=== PATIENT | female | born 1940 | race Caucasian/White ===

== ENCOUNTER 2016-10-30 11:49 | Emergency (ER) | payer OTHER ==
[2016-10-30 12:13] VITALS: RESP 16; TEMP 98.1
--- NOTE | 2016-10-30 12:33 | ED PDOC ---
Arrival/HPI - General Chief Complaint: Abdominal Pain Time Seen by Provider: 10/30/16 12:08 Historian: Patient, Family, Wireless Internet Installer (CLAUDETTE Reddy) - History of Present Illness Narrative History of Present Illness (Text): 10/30/16 12:10 Benjy Galaviz is a 76 year old female accompanied by family, whose past medical history includes hypertension, who presents to the emergency department complaining of a burning sensation to the left side of her face, neck, chest, and left arm for about 1 week. Patient cannot speak [place], [facility]. Patient's family states that has had these symptoms intermittently since she was in [place] years ago and was told it was a nerve issue but patient was not overly concerned. Patient states that the same symptoms have worsened significantly over the past week causing her to come to emergency department. Patient denies any pain, nausea, back pain, or any other complaint at this time. No weakness. PMD: None Time/Duration: 1 week Symptom Onset: Gradual Symptom Course: Worsening Severity Level: Mild Activities at Onset: Rest Past Medical History - Provider Review Nursing Documentation Reviewed: Yes - Past History Past History: Non-Contributing - Cardiac Hx Cardiac Disorders: Yes Hx Hypertension: Yes - Pulmonary Hx Respiratory Disorders: No - Neurological Hx Neurological Disorder: No - HEENT Hx HEENT Disorder: No - Renal Hx Renal Disorder: No - Endocrine/Metabolic Hx Endocrine Disorders: No - Hematological/Oncological Hx Blood Disorders: Yes - Integumentary Hx Dermatological Disorder: No - Musculoskeletal/Rheumatological Hx Musculoskeletal Disorders: No - Gastrointestinal Hx Gastrointestinal Disorders: No - Genitourinary/Gynecological Hx Genitourinary Disorders: No - Psychiatric Hx Psychophysiologic Disorder: No Hx Substance Use: No Family/Social History - Physician Review Nursing Documentation Reviewed: Yes Family/Social History: No Known Family HX Smoking Status: Never Smoked Hx Alcohol Use: No Hx Substance Use: No Allergies/Home Meds Allergies/Adverse Reactions: Allergies No Known Allergies Allergy (Verified 04/09/16 09:19) Review of Systems - Physician Review All systems were reviewed & negative as marked: Yes - Review of Systems Constitutional: Other (burning sensation to left-sided face, neck, chest, and arm). absent: Fevers, Night Sweats Eyes: absent: Vision Changes ENT: absent: Hearing Changes Respiratory: absent: SOB, Cough Cardiovascular: absent: Chest Pain Gastrointestinal: absent: Abdominal Pain Genitourinary Female: absent: Dysuria, Urine Output Changes Musculoskeletal: absent: Arthralgias, Back Pain, Neck Pain Skin: absent: Rash Neurological: absent: Headache Endocrine: absent: Diaphoresis Hemo/Lymphatic: absent: Adenopathy Psychiatric: absent: Depression Physical Exam Vital Signs Reviewed: Yes Vital Signs Temp Pulse Resp BP Pulse Ox 10/30/16 14:34 80 16 137/63 96 10/30/16 12:09 98.1 F 83 16 162/82 H 98 Temperature: Afebrile Blood Pressure: Hypertensive Pulse: Regular Respiratory Rate: Normal Appearance: Positive for: Well-Appearing, Non-Toxic, Comfortable Pain Distress: None Mental Status: Positive for: Alert and Oriented X 3 - Systems Exam Head: Present: Atraumatic, Normocephalic Pupils: Present: PERRL Extroacular Muscles: Present: EOMI Conjunctiva: Present: Normal Mouth: Present: Moist Mucous Membranes, Other (normal gums; no abscess ) Pharnyx: Present: Normal. No: ERYTHEMA, EXUDATE Neck: Present: Normal Range of Motion, Other (tender left paraspinal; No carotid bruit). No: MIDLINE TENDERNESS, JVD, Bruit Respiratory/Chest: Present: Clear to Auscultation, Good Air Exchange. No: Respiratory Distress, Accessory Muscle Use Cardiovascular: Present: Regular Rate and Rhythm, Normal S1, S2. No: Murmurs Abdomen: Present: Normal Bowel Sounds. No: Tenderness, Distention, Peritoneal Signs Back: Present: Normal Inspection Upper Extremity: Present: Normal Inspection, Normal ROM, NORMAL PULSES, Neurovascularly Intact. No: Cyanosis, Edema, Tenderness, Swelling, Erythema Lower Extremity: Present: Normal Inspection, Neurovascularly Intact. No: Edema Neurological: Present: GCS=15, CN II-XII Intact, Speech Normal, Motor Func Grossly Intact, Normal Sensory Function, Normal Cerebellar Funct Skin: Present: Warm, Dry, Normal Color. No: Rashes Psychiatric: Present: Alert, Oriented x 3, Normal Insight, Normal Concentration Medical Decision Making ED Course and Treatment: 10/30/16 12:10 Impression: 76 year old female complaining of a burning sensation to the left side of her face, neck, chest, and left arm for about 1 week. Differential Diagnosis include but are not limited to: Neuropathy vs. Muscle Strain vs. Atypical Chest pain Plan: -- EKG -- Chest X-ray -- Urinalysis -- Labs -- Reassess and disposition Prior Visits: Notes and results from previous visits were reviewed. Patient last seen in ED on 04/09/16 for sharp epigastric pain for 3 days. Patient was discharged home. Progress Notes: EKG: Ordered, reviewed, and independently interpreted the EKG. Rate : 84 BPM Rhythm : NSR Interpretation : No ST-segment elevations or depressions, no T-wave inversions, normal intervals. Comparison : No previous EKG for comparison. 10/30/16 12:50 Reviewed radiology, Chest x-ray results are normal. Patient's labs were normal. EKG normal. CXR normal. She has a very low ISAAC score and symptoms have been constant for a week. There is a low likely for ACS but have advised that she needs to follow up with the clinic and Cardiology. Family at bedside and translation provided by CLAUDETTE Reddy. They were advised to return to the ED if symptoms worsen or any other concern. - Lab Interpretations Lab Results: 10/30/16 12:43 10/30/16 12:43 Lab Results 10/30/16 13:02: Urine Color Yellow, Urine Appearance Clear, Urine pH 6.0, Ur Specific [place] 1.010, Urine Protein Negative, Urine Glucose (UA) Negative, Urine Ketones Negative, Urine Blood Trace-lysed H, Urine Nitrate Negative, Urine Bilirubin Negative, Urine Urobilinogen 0.2, Ur Leukocyte Esterase Negative , Urine RBC 0 - 2, Urine WBC Negative, Ur Epithelial Cells 1 - 3 10/30/16 12:43: Sodium 141, Potassium 4.0, Chloride 104, Carbon Dioxide 26, Anion Gap 15, BUN 18, Creatinine 0.8, Est GFR ( Amer) > 60, Est GFR (Non- Af Amer) > 60, Random Glucose 131 H, Calcium 9.8, Magnesium 2.1, Total Bilirubin 0.8, AST 32, ALT 35, Alkaline Phosphatase 99, Lactate Dehydrogenase 358, Total Creatine Kinase 42, Troponin I < 0.01, Total Protein 9.7 H, Albumin 4.6, Globulin 5.1, Albumin/Globulin Ratio 0.9 L 10/30/16 12:43: WBC 5.1 D, RBC 4.59, Hgb 13.8, Hct 41.0, MCV 89.3, MCH 30.1, MCHC 33.7, RDW 13.0, Plt Count 349, MPV 9.7, Gran % 43.0 L, Lymph % (Auto) 45.2 H, [place] % (Auto) 9.8 H, Eos % (Auto) 1.4 L, Baso % (Auto) 0.6, Gran # 2.20, Lymph # 2.3, [place] # 0.5, Eos # 0.1, Baso # 0.03 I have reviewed the lab results: Yes Interpretation: Abnormal lab values - RAD Interpretation Radiology Orders: 10/30/16 12:27 CHEST PORTABLE [RAD] Stat - Medication Orders Current Medication Orders: Discontinued Medications Ketorolac Tromethamine (Toradol) 30 mg IVP STAT STA Stop: 10/30/16 12:31 Last Admin: 10/30/16 12:42 Dose: 30 mg ISAAC Risk Score for UA/NSTEMI - ISAAC Risk Score Age > 64: YES 3 or more CAD Risk Factors: NO Known CAD (Stenosis greater than 50%): NO Aspirin use in past 7 days: NO Severe Angina: NO EKG ST changes greater than 0.5mm: NO Positive Cardiac Marker: NO ISAAC Score: 1 % risk at 14 days of: all cause mortality, new or recurrent SD, or severe recurrent ischemia requiring urgen revascularization: 5% - Scribe Statement The provider has reviewed the documentation as recorded by the Cortez Corona Provider Scribe Attestation: All medical record entries made by the Farrahibtyra were at my direction and personally dictated by me. I have reviewed the chart and agree that the record accurately reflects my personal performance of the history, physical exam, medical decision making, and the department course for this patient. I have also personally directed, reviewed, and agree with the discharge instructions and disposition. Disposition/Present on Arrival - Present on Arrival Any Indicators Present on Arrival: No History of DVT/PE: No History of Uncontrolled Diabetes: No Urinary Catheter: No History of Decub. Ulcer: No History Surgical Site Infection Following: None - Disposition Have Diagnosis and Disposition been Completed?: Yes Diagnosis: Burning chest pain, Neck strain Disposition: HOME/ ROUTINE Disposition Time: 14:44 Patient Plan: Discharge Condition: IMPROVED Discharge Instructions (ExitCare): Chest Pain (ED) Additional Instructions: Ms Galaviz thank you for letting us take care of you today. Your provider was Dr. Sosa. You were treated for Face and Chest Burning, Neck Strain The emergency medical care you received today was directed at your acute symptoms. If you were prescribed any medication, please fill it and take as directed. It may take several days for your symptoms to resolve. Return to the Emergency Department if your symptoms worsen, do not improve, or if you have any other problems. Please contact your doctor or call one of the physicians/clinics you have been referred to that are listed on the Patient Visit Information form that is included in your discharge packet. Bring any paperwork you were given at discharge with you along with any medications you are taking to your follow up visit. Our treatment cannot replace ongoing medical care by a primary care provider (PCP) outside of the emergency department. Thank you for allowing the [facility] team to be part of your care today. If you had an X-Ray or CT scan: A Radiologist will review the ED reading if any change in treatment is needed we will contact you. If you had a blood, urine, or wound culture: It will take several days for the results, if any change in treatment is needed we will contact you. If you had an STI test: It will take 48 hours for the results. Please call after 1 week if you have not heard back. Prescriptions: Ibuprofen [Motrin] 600 mg PO Q6 PRN #30 tab PRN Reason: Pain, Moderate (4-7) Referrals: [facility] [place] [Outside] - Follow up with primary Forms: [employer] ([place]ican)
[2016-10-30 12:44] LABS: ADD MANUAL DIFF? NO
[2016-10-30 12:47] LABS: BASO # 0.03 K/mm3 (0.0-2.0); BASO % 0.6 % (0.0-3.0); EOS # 0.1 (0.0-0.7); EOS % 1.4 % (1.5-5.0); LYMPH # 2.3 (1.2-3.4); LYMPH % 45.2 % (22.0-35.0); MEAN CELL VOLUME 89.3 fL (80.0-105.0); MEAN CORPUSCULAR HEMOGLOBIN 30.1 pg (25.0-35.0); MEAN CORPUSCULAR HGB CONC 33.7 g/dl (31.0-37.0); MEAN PLATELET VOLUME 9.7 fl (7.0-11.0); MONO # 0.5 (0.1-0.6); MONO % 9.8 % (1.0-6.0); PLATELET COUNT 349 10^3/uL (120.0-450.0); WHITE BLOOD COUNT 5.1 10^3/ul (4.5-11.0)
[2016-10-30 12:58] LABS: ALB/GLOB RATIO 0.9 (1.1-1.8); BLOOD UREA NITROGEN 18 mg/dL (7-21); CALCIUM 9.8 mg/dL (8.4-10.5); CARBON DIOXIDE 26 mmol/L (21-33); CHLORIDE 104 mmol/L (98-107); GFR AFRICAN-AMERICAN > 60; GLUCOSE,RANDOM 131 mg/dL (70-110); SODIUM 141 mmol/L (132-148); TOTAL PROTEIN 9.7 g/dL (5.8-8.3)
[2016-10-30 12:59] LABS: ALKALINE PHOSPHATASE 99 U/L (38-133); ALT/SGPT 35 U/L (7-56); AST/SGOT 32 U/L (15-39); BILIRUBIN,TOTAL 0.8 mg/dL (0.2-1.3); MAGNESIUM 2.1 mg/dL (1.7-2.2)
[2016-10-30 13:09] LABS: URINE BILIRUBIN NEGATIVE (NEGATIVE); URINE BLOOD TRACE-LYSED (NEGATIVE); URINE GLUCOSE (UA) NEGATIVE (NEGATIVE); URINE KETONE NEGATIVE (NEGATIVE); URINE LEUKOCYTE ESTERASE NEGATIVE Leu/uL (NEGATIVE); URINE PROTEIN NEGATIVE mg/dL (<30 mg/dL); URINE UROBILINOGEN 0.2 E.U./dL (<1 E.U./dL)
[2016-10-30 13:11] LABS: TROPONIN I < 0.01 ng/mL
[2016-10-30 13:12] LABS: URINE APPEARANCE CLEAR (CLEAR); URINE COLOR YELLOW (YELLOW)
[2016-10-30 13:13] LABS: URINE RBC 0 - 2 /hpf (0-2); URINE WBC NEGATIVE /hpf (0-6)
[2016-10-30 14:34] VITALS: BP 137/63; PULSE 80; O2SAT 96
--- NOTE | 2016-10-30 15:43 | CARD ---
APPROVED REPORT EKG Measurement Heart [id number] <Conclusion> Normal sinus rhythm Normal ECG
--- NOTE | 2016-10-31 07:54 | RAD ---
HISTORY: chest pain COMPARISON: No prior. FINDINGS: LUNGS: No active pulmonary disease. PLEURA: No significant pleural effusion identified, no pneumothorax apparent. CARDIOVASCULAR: Normal. OSSEOUS STRUCTURES: No significant abnormalities. VISUALIZED UPPER ABDOMEN: Normal. OTHER FINDINGS: None. IMPRESSION: No active disease.
== END 2016-10-30 14:48 | disposition home or self-care (01) ==
LOC: ED 11:49
DX: R07.9 Chest pain, unspecified (principal); R20.8 Other disturbances of skin sensation; S16.1XXA Strain of muscle, fascia and tendon at neck level, initial encounter; X58.XXXA Exposure to other specified factors, initial encounter; I10 Essential (primary) hypertension
CPT/HCPCS: 71010; 80053; 81001; 82550; 83615; 83735; 84484; 85025; 93005; 96374; 99284; J1885

== ENCOUNTER 2017-08-27 19:37 | Observation (INO) | payer SELFPAY ==
--- NOTE | 2017-08-27 19:52 | ED PDOC ---
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 Pt. stated that she feels the burning sensation on the midsternum region, nausea with vomiting, associated with the shortness of breath which worsened this evening, no night sweat, no dizziness, no tearing pain on the back or shoulder blade pain, no palpitation, no change in vision, no rash, no other medical or psychological complaints. Past Medical History - Provider Review Nursing Documentation Reviewed: Yes - Past History Past History: Non-Contributing - Cardiac Hx Cardiac Disorders: Yes Hx Hypertension: Yes - Pulmonary Hx Respiratory Disorders: No - Neurological Hx Neurological Disorder: No - HEENT Hx HEENT Disorder: No - Renal Hx Renal Disorder: No - Endocrine/Metabolic Hx Endocrine Disorders: No - Hematological/Oncological Hx Blood Disorders: Yes - Integumentary Hx Dermatological Disorder: No - Musculoskeletal/Rheumatological Hx Musculoskeletal Disorders: No - Gastrointestinal Hx Gastrointestinal Disorders: No - Genitourinary/Gynecological Hx Genitourinary Disorders: No - Psychiatric Hx Psychophysiologic Disorder: No Hx Substance Use: No Family/Social History - Physician Review Nursing Documentation Reviewed: Yes Family/Social History: Unknown Family HX Smoking Status: Never Smoked Hx Alcohol Use: No Hx Substance Use: No Allergies/Home Meds Allergies/Adverse Reactions: Allergies No Known Allergies Allergy (Verified 04/09/16 09:19) Review of Systems - Review of Systems Constitutional: absent: Fatigue, Weight Change Eyes: absent: Vision Changes ENT: absent: Hearing Changes Respiratory: SOB. absent: Cough Cardiovascular: Chest Pain Gastrointestinal: Abdominal Pain, Nausea, Vomiting Skin: absent: Rash, Pruritis Neurological: absent: Headache Psychiatric: absent: Anxiety, Depression, Suicidal Ideation Physical Exam Vital Signs Reviewed: Yes Vital Signs Temp Pulse Pulse Resp BP Pulse Ox 08/28/17 01:00 97.4 F L 67 18 134/75 96 08/27/17 23:46 66 18 08/27/17 22:44 98 F 77 17 148/82 98 08/27/17 19:53 97.7 F 71 18 147/78 100 08/27/17 19:43 97.7 F 147/78 08/27/17 19:40 76 18 97 Temperature: Afebrile Blood Pressure: Normal Pulse: Regular Respiratory Rate: Normal Appearance: Positive for: Well-Appearing, Non-Toxic, Comfortable Pain Distress: Moderate Mental Status: Positive for: Alert and Oriented X 3 - Systems Exam Head: Present: Atraumatic, Normocephalic Pupils: Present: PERRL Extroacular Muscles: Present: EOMI Conjunctiva: Present: Normal Mouth: Present: Moist Mucous Membranes Neck: Present: Normal Range of Motion Respiratory/Chest: Present: Clear to Auscultation, Good Air Exchange. No: Respiratory Distress, Accessory Muscle Use Cardiovascular: Present: Regular Rate and Rhythm, Normal S1, S2. No: Murmurs Abdomen: Present: Tenderness (+epigastric tenderness), Normal Bowel Sounds. No : Distention, Peritoneal Signs, Rebound, Guarding Back: Present: Normal Inspection Upper Extremity: Present: Normal Inspection. No: Cyanosis, Edema Lower Extremity: Present: Normal Inspection. No: Edema Neurological: Present: GCS=15, Speech Normal, Motor Func Grossly Intact, Gait Normal, Memory Normal Skin: Present: Warm, Dry, Normal Color. No: Rashes Psychiatric: Present: Alert, Oriented x 3, Normal Insight, Normal Concentration Medical Decision Making ED Course and Treatment: 08/27/17 19:50 -labs/lipase/cardiac enzyme/ua -gallbladder sonogram -chest xray -ekg -IVF/pepcid/zofran -observe and reassess 08/27/17 22:24 -HEART Score is 4, moderate. -EKG: NSR @ 74 BPM, no ST elevation or depression, no T wave inversion, compared with previous ekg. -Chest xray show no focal consolidation, pleural effusion, or pneumothorax. -Gallbladder sonogram: No evidence of cholecystitis. No acute findings in the right upper quadrant. -Labs show no acute findings noted -UA show no UTI -1st set Cardiac enzyme is negative -BNP is negative -I am clinically concerning about the possible underlying ACS, will need 24 hours troponin set. 08/27/17 22:24 -I spoke to the medical psychotherapist Dr. Ahumada and Dr. Rodríguez, discussed about the case/labs/radiology result, agreed to admit the patient to telemetry for observation - Lab Interpretations Lab Results: 08/27/17 20:23 08/27/17 20:23 Lab Results 08/27/17 21:18: Urine Color Yellow, Urine Appearance Clear, Urine pH 6.0, Ur Specific [place] 1.010, Urine Protein Negative, Urine Glucose (UA) Negative, Urine Ketones Negative, Urine Blood Negative, Urine Nitrate Negative, Urine Bilirubin Negative, Urine Urobilinogen 0.2, Ur Leukocyte Esterase Negative 08/27/17 20:23: WBC 4.0 L D, RBC 4.59, Hgb 13.8, Hct 40.4, MCV 88.0, MCH 30.1, MCHC 34.2, RDW 12.4, Plt Count 301, MPV 11.3 H, Gran % 17.1 L, Lymph % (Auto) 67.8 H, [place] % (Auto) 14.1 H, Eos % (Auto) 0.5 L, Baso % (Auto) 0.5, Gran # 0.68 L, Lymph # (Auto) 2.7, [place] # (Auto) 0.6, Eos # (Auto) 0.0, Baso # (Auto) 0.02 08/27/17 20:23: Sodium 139, Potassium 3.9, Chloride 102, Carbon Dioxide 27, Anion Gap 14, BUN 12, Creatinine 0.6 L, Est GFR ( Amer) > 60, Est GFR ( Non-Af Amer) > 60, Random Glucose 122 H, Calcium 9.7, Magnesium 2.4 H, Total Bilirubin 0.5, AST 47 H, ALT 27, Alkaline Phosphatase 85, Lactate Dehydrogenase 561, Total Creatine Kinase 46, Troponin I < 0.01, NT-Pro-B Natriuret Pep 87.1, Total Protein 9.1 H, Albumin 4.3, Globulin 4.8, Albumin/Globulin Ratio 0.9 L, Lipase 68 I have reviewed the lab results: Yes - RAD Interpretation Radiology Orders: 08/27/17 19:48 CHEST PORTABLE [RAD] Stat GALL BLADDER [US] Stat Chest xray: FINDINGS: Lungs: Mild reticulonodular densities at the right lower lung is again seen but appear slightly more pronounced, likely due to technique and projection. They most likely represent a combination of prominent pulmonary bronchovascular markings, small airways inflammation, subsegmental atelectasis, focal pulmonary fibrosis, and/or mild dependent edema. Patchy densities along the left heart border also again seen and probably due to the same etiologies. Bandlike scarring at the right mid lung, unchanged. Otherwise, no focal consolidation, pleural effusion, or pneumothorax. Heart: Unremarkable. No cardiomegaly. Mediastinum: Unremarkable. Bones/joints: Unremarkable. IMPRESSION: As above Thank you for allowing us to participate in the care of your patient. Dictated and Authenticated by: Calin Díaz MD 08/27/2017 8:45 PM Eastern Time ( [employer] [place]) Gallbladder: The gallbladder is normal without gallstones, wall thickening, or pericholecystic fluid. No sonographic Lei's sign was elicited during scanning. The common bile duct is within normal limits, measuring 4 mm in diameter. There is no intrahepatic biliary ductal dilatation. The liver is normal in size and echotexture. The portal vein is patent with hepatopetal flow. The visualized portions of the pancreas, IVC, aorta, and right kidney are normal. IMPRESSION: No evidence of cholecystitis. No acute findings in the right upper quadrant. Thank you for allowing us to participate in the care of your patient. Dictated and Authenticated by: Tonie Chung MD 08/27/2017 9:32 PM Eastern Time ( [employer] [place]) Food Safety Field Specialist: Radiologist - EKG Interpretation EKG Interpretation (Text): 08/27/17 19:52 -EKG: NSR @ 74 BPM, no ST elevation or depression, no T wave inversion, compared with previous ekg. Interpreted by ED Physician: Yes Type: 12 lead EKG Comparison: Com.w/previous EKG - Medication Orders Current Medication Orders: Sodium Chloride (Sodium Chloride 0.9%) 1,000 mls @ 100 mls/hr IV .Q10H ROHIT Last Admin: 08/28/17 05:01 Dose: 100 mls/hr eMAR Start Stop Document 08/28/17 05:01 GC (Rec: 08/28/17 05:01 GC [id number]) Intravenous Solution Start Date 08/28/17 Start Time 05:01 Pantoprazole Sodium (Protonix Ec Tab) 40 mg PO 0600 ROHIT Last Admin: 08/28/17 05:01 Dose: 40 mg Discontinued Medications Aspirin (Aspirin) 325 mg PO STAT STA Stop: 08/27/17 19:49 Last Admin: 08/27/17 19:57 Dose: 325 mg Famotidine (Pepcid) 20 mg IVP STAT STA Stop: 08/27/17 19:49 Last Admin: 08/27/17 20:16 Dose: 20 mg IVP Administration Document 08/27/17 20:16 LA (Rec: 08/27/17 20:16 LA [id number]) Charges for Administration # of IVP Administrations 1 Ondansetron HCl (Zofran Inj) 4 mg IVP STAT STA Stop: 08/27/17 19:49 Last Admin: 08/27/17 20:16 Dose: 4 mg IVP Administration Document 08/27/17 20:16 LA (Rec: 08/27/17 20:16 LA [id number]) Charges for Administration # of IVP Administrations 1 - PA / WAG[employer] DRILLER / Resident Statement /DO has reviewed & agrees with the documentation as recorded. Disposition/Present on Arrival - Present on Arrival Any Indicators Present on Arrival: No History of DVT/PE: No History of Uncontrolled Diabetes: No Urinary Catheter: No History of Decub. Ulcer: No History Surgical Site Infection Following: None - Disposition Have Diagnosis and Disposition been Completed?: Yes Diagnosis: Shortness of breath, Acute epigastric pain, Chest pain Disposition: HOSPITALIZED Disposition Time: 21:08 Patient Plan: Admission, Observation, Telemetry Patient Problems: Current Active Problems Problem Status Onset Acute epigastric pain Acute Chest pain Acute Shortness of breath Acute Condition: STABLE
[2017-08-27] MEDS: Sodium Chloride 0.9% 1,000 ML IV SCH (20:16)
[2017-08-27 20:38] LABS: GRAN % 17.1 % (50.0-68.0); HEMOGLOBIN 13.8 g/dL (12.0-16.0); LYMPH % 67.8 % (22.0-35.0); MEAN CORPUSCULAR HEMOGLOBIN 30.1 pg (25.0-35.0); MEAN CORPUSCULAR HGB CONC 34.2 g/dl (31.0-37.0); MEAN PLATELET VOLUME 11.3 fl (7.0-11.0); RBC 4.59 10^6/uL (3.5-6.1); RED CELL DISTRIBUTION WIDTH 12.4 % (11.5-14.5)
[2017-08-27 20:39] LABS: BASO # 0.02 K/mm3 (0.0-2.0); BASO % 0.5 % (0.0-3.0); EOS % 0.5 % (1.5-5.0); GRAN # 0.68 (1.4-6.5); LYMPH # 2.7 (1.2-3.4); MONO # 0.6 (0.1-0.6); MONO % 14.1 % (1.0-6.0)
[2017-08-27 20:44] LABS: ALB/GLOB RATIO 0.9 (1.1-1.8); ALBUMIN 4.3 g/dL (3.0-4.8); CALCIUM 9.7 mg/dL (8.4-10.5); GFR AFRICAN-AMERICAN > 60; GFR NON-AFRICAN AMERICAN > 60; LIPASE 68 U/L (23-300)
[2017-08-27 20:52] LABS: ALT/SGPT 27 U/L (7-56); AST/SGOT 47 U/L (14-36); BLOOD UREA NITROGEN 12 mg/dL (7-21)
[2017-08-27 20:54] LABS: B-TYPE NATRIURETIC PEPTIDE 87.1 pg/mL (0-450); TROPONIN I < 0.01 ng/mL
[2017-08-27 21:35] LABS: URINE BILIRUBIN NEGATIVE (NEGATIVE); URINE BLOOD NEGATIVE (NEGATIVE); URINE GLUCOSE (UA) NEGATIVE (NEGATIVE); URINE LEUKOCYTE ESTERASE NEGATIVE Leu/uL (NEGATIVE); URINE PROTEIN NEGATIVE mg/dL (<30 mg/dL); URINE UROBILINOGEN 0.2 E.U./dL (<1 E.U./dL)
[2017-08-27 21:41] LABS: URINE APPEARANCE CLEAR (CLEAR); URINE COLOR YELLOW (YELLOW)
--- NOTE | 2017-08-27 22:35 | CP.PCM.HP ---
<Ryan Ahumada - Last Filed: 08/27/17 23:36> History of Present Illness - History of Present Illness History of Present Illness: Subjective: CC: Abdominal Pain, Nausea HPI: Patient is a 76 year old Swedish speaking female with past medical history of who presents to the emergency department for evaluation and treatment of abdominal pain and nausea which began 2 days ago with no specific provoking events. Denies change in diet, recent travel, and sick contacts. States the pain originates in the upper part of the abdomen and intermittently radiates to the back. The pain is characterized as being dull in nature and is not associated with PO intake. Admits to nausea and dry heaving. Patient was asked repeatedly about experiencing chest pain/sob as indicated by [facility] ADMINISTRATOR however patient persistently denied aformentioned symptoms. Patient denies intractable headache, fever, chills, dizziness, blurry vision, ringing in the ears, chest pain, shortness of breath, diarrhea, constipation, and urinary symptoms. ROS: 12 point review of systems negative except as indicated in HPI PMHx: htn, hep c PSHx: denies Family Hx: denies Social Hx: denies ETOH use, tobacco use, illicit drug use Medications: Please see medication reconciliation PMD: Dr. Nayak Physical Examination: - Constitutional Appears: Non-toxic, No Acute Distress - Head Exam Head Exam: atraumatic, normocephalic - Eye Exam Eye Exam: Normal appearance, PERRL. absent: Scleral icterus - ENT Exam ENT Exam: Mucous Membranes Moist - Neck Exam Neck exam: Normal Inspection - Respiratory Exam Respiratory Exam: Normal Breathing Pattern - Cardiovascular Exam Cardiovascular Exam: +S1, +S2. absent: Gallop, JVD - GI/Abdominal Exam GI & Abdominal Exam: Normal Bowel Sounds, absent: Distended, Guarding, Pulsatile Mass, Rebound, Rigid - Extremities Exam Extremities exam: Negative for: calf tenderness - Neurological Exam Neurological exam: Patient is awake, alert, responds to verbal stimuli, answers questions appropriately, follows commands, and moves extremities past midline - Psychiatric Exam Psychiatric exam: Normal Affect, Normal Mood - Skin Skin Exam: warm and dry Assessment and Plan: Patient is a 76 year old Swedish speaking female with past medical history of who was admitted for evaluation and treatment of abdominal pain and nausea. Abdominal Pain, Nausea - likely 2/2 to GERD - lipase level 68 - protonix - zofran "Chest Pain"- as per [facility] ADMINIST[facility] - rule out ACS - EKG reviewed and appreciated - NSR HR 74 bpm, QTC 457, no ST or T wave changes - cardiac enzymes q8h x 3, first troponins negative - lipid profile and A1C pending - consider cardiology consult pending patient's clinical course Hx of Hep C - did not receive treatment in the past - hep panel pending Hx of HTN - confirm home metoprolol 25mg PO daily prior to starting - BP reviewed, trended, and appreciated- 140s/70s Prophylaxis - DVT ppx- SCDs - GI ppx- protonix Patient case discussed with and plan approved by attending physician. Present on Admission - Present on Admission Any Indicators Present on Admission: No Past Patient History - Past Social History Smoking Status: Never Smoked - CARDIAC Hx Cardiac Disorders: Yes Hx Hypertension: Yes - PULMONARY Hx Respiratory Disorders: No - NEUROLOGICAL Hx Neurological Disorder: No - HEENT Hx HEENT Problems: No - RENAL Hx Chronic Kidney Disease: No - ENDOCRINE/METABOLIC Hx Endocrine Disorders: No - HEMATOLOGICAL/ONCOLOGICAL Hx Blood Disorders: Yes - INTEGUMENTARY Hx Dermatological Problems: No - MUSCULOSKELETAL/RHEUMATOLOGICAL Hx Musculoskeletal Disorders: No - GASTROINTESTINAL Hx Gastrointestinal Disorders: No - GENITOURINARY/GYNECOLOGICAL Hx Genitourinary Disorders: No - PSYCHIATRIC Hx Psychophysiologic Disorder: No Hx Substance Use: No - SURGICAL HISTORY Hx Surgeries: No Meds Allergies/Adverse Reactions: Allergies Allergy/AdvReac Type Severity Reaction Status Date / Time No Known Allergies Allergy Verified 04/09/16 09:19 Results - Vital Signs Recent Vital Signs: Last Vital Signs Temp 97.7 F 08/27/17 19:53 Pulse 71 08/27/17 19:53 Resp 18 08/27/17 19:53 BP 147/78 08/27/17 19:53 Pulse Ox 100 08/27/17 19:53 - Labs Result Diagrams: 08/27/17 20:23 08/27/17 20:23 Labs: Laboratory Results - last 24 hr 08/27/17 08/27/17 08/27/17 20:23 20:23 21:18 WBC 4.0 L D RBC 4.59 Hgb 13.8 Hct 40.4 MCV 88.0 MCH 30.1 MCHC 34.2 RDW 12.4 Plt Count 301 MPV 11.3 H Gran % 17.1 L Lymph % (Auto) 67.8 H [place] % (Auto) 14.1 H Eos % (Auto) 0.5 L Baso % (Auto) 0.5 Gran # 0.68 L Lymph # (Auto) 2.7 [place] # (Auto) 0.6 Eos # (Auto) 0.0 Baso # (Auto) 0.02 Sodium 139 Potassium 3.9 Chloride 102 Carbon Dioxide 27 Anion Gap 14 BUN 12 Creatinine 0.6 L Est GFR ( Amer) > 60 Est GFR (Non-Af Amer) > 60 Random Glucose 122 H Calcium 9.7 Magnesium 2.4 H Total Bilirubin 0.5 AST 47 H ALT 27 Alkaline Phosphatase 85 Lactate Dehydrogenase 561 Total Creatine Kinase 46 Troponin I < 0.01 NT-Pro-B Natriuret Pep 87.1 Total Protein 9.1 H Albumin 4.3 Globulin 4.8 Albumin/Globulin Ratio 0.9 L Lipase 68 Urine Color Yellow Urine Appearance Clear Urine pH 6.0 Ur Specific [place] 1.010 Urine Protein Negative Urine Glucose (UA) Negative Urine Ketones Negative Urine Blood Negative Urine Nitrate Negative Urine Bilirubin Negative Urine Urobilinogen 0.2 Ur Leukocyte Esterase Negative <Garcia Rodríguez - Last Filed: 08/28/17 10:32> Results - Vital Signs Recent Vital Signs: Last Vital Signs Temp 98.6 F 08/28/17 06:00 Pulse 67 08/28/17 06:00 Resp 20 08/28/17 06:00 BP 117/68 08/28/17 06:00 Pulse Ox 97 08/28/17 06:00 - Labs Result Diagrams: 08/28/17 06:00 08/28/17 06:00 Labs: Laboratory Results - last 24 hr 08/28/17 08/28/17 06:00 06:00 WBC 3.6 L RBC 4.04 Hgb 12.0 Hct 35.8 L MCV 88.6 MCH 29.7 MCHC 33.5 RDW 12.2 Plt Count 250 MPV 10.0 Gran % 33.6 L Lymph % (Auto) 54.4 H [place] % (Auto) 11.0 H Eos % (Auto) 0.5 L Baso % (Auto) 0.5 Gran # 1.22 L Lymph # (Auto) 2.0 [place] # (Auto) 0.4 Eos # (Auto) 0.0 Baso # (Auto) 0.02 Sodium 141 Potassium 3.6 Chloride 107 Carbon Dioxide 26 Anion Gap 12 BUN 9 Creatinine 0.6 L Est GFR ( Amer) > 60 Est GFR (Non-Af Amer) > 60 Random Glucose 110 Calcium 8.9 Total Bilirubin 0.3 AST 33 ALT 32 Alkaline Phosphatase 80 Lactate Dehydrogenase 310 L Total Creatine Kinase 35 Troponin I < 0.01 Total Protein 7.3 Albumin 3.4 Globulin 3.9 Albumin/Globulin Ratio 0.9 L Triglycerides 67 Cholesterol 118 L LDL Cholesterol Direct 70 HDL Cholesterol 28 L Attending/Attestation - Attestation I have personally seen and examined this patient.: Yes I have fully participated in the care of the patient.: Yes I have reviewed all pertinent clinical information: Yes Notes (Text): 08/28/17 10:31 Patient was seen when she was in the ER in bed # 7. Spoke to daughter to get history. Agree with history , physical examination, assessment and plan.
[2017-08-28] MEDS: Sodium Chloride 0.9% 1,000 ML IV SCH (05:01)
[2017-08-28] MEDS ORDERED: Pantoprazole 40 mg EC Tab PO SCH (06:00)
[2017-08-28 06:22] VITALS: O2SAT 97
[2017-08-28 07:13] LABS: BASO # 0.02 K/mm3 (0.0-2.0); BASO % 0.5 % (0.0-3.0); EOS % 0.5 % (1.5-5.0); GRAN # 1.22 (1.4-6.5); GRAN % 33.6 % (50.0-68.0); LYMPH % 54.4 % (22.0-35.0); MEAN CELL VOLUME 88.6 fl (80.0-105.0); MEAN CORPUSCULAR HEMOGLOBIN 29.7 pg (25.0-35.0); MEAN CORPUSCULAR HGB CONC 33.5 g/dl (31.0-37.0); MONO # 0.4 (0.1-0.6); RBC 4.04 10^6/uL (3.5-6.1); RED CELL DISTRIBUTION WIDTH 12.2 % (11.5-14.5); WHITE BLOOD COUNT 3.6 10^3/ul (4.5-11.0)
[2017-08-28 07:27] LABS: TROPONIN I < 0.01 ng/mL
[2017-08-28 07:29] LABS: ALB/GLOB RATIO 0.9 (1.1-1.8); ALBUMIN 3.4 g/dL (3.0-4.8); ALT/SGPT 32 U/L (7-56); AST/SGOT 33 U/L (14-36); BLOOD UREA NITROGEN 9 mg/dL (7-21); CALCIUM 8.9 mg/dL (8.4-10.5); GFR AFRICAN-AMERICAN > 60; GFR NON-AFRICAN AMERICAN > 60; HDL CHOLESTEROL 28 mg/dL (29-60)
[2017-08-28 07:31] LABS: LDL CHOLESTEROL 70 mg/dL (0-129)
--- NOTE | 2017-08-28 07:57 | RAD ---
HISTORY: shortness of breath COMPARISON: 10/30/2016 FINDINGS: LUNGS: Chronic interstitial lung disease. PLEURA: No significant pleural effusion identified, no pneumothorax apparent. CARDIOVASCULAR: No radiographic findings to suggest acute or significant cardiovascular disease. OSSEOUS STRUCTURES: No significant abnormalities. VISUALIZED UPPER ABDOMEN: Normal. OTHER FINDINGS: None. IMPRESSION: No active disease. No significant interval change compared to the prior examination(s).
--- NOTE | 2017-08-28 09:19 | US ---
HISTORY: epigastric abdominal pain COMPARISON: None. TECHNIQUE: Sonographic evaluation of the right upper quadrant of the abdomen. FINDINGS: LIVER: Measures 15.7 cm in length. Patent portal vein. Portal venous flow: Hepatopetal. Unremarkable echogenicity of the liver parenchyma. No mass. No intrahepatic bile duct dilatation. GALLBLADDER: Unremarkable. No gallstones. COMMON BILE DUCT: Measures 3.8 mm. No stones. No dilatation. PANCREAS: Unremarkable as visualized. No mass. No ductal dilatation. RIGHT KIDNEY: Measures 3.2 x 5 x 9.4 cm in length. Normal echogenicity. No calculus, mass, or hydronephrosis. AORTA: No aneurysmal dilatation. IVC: Unremarkable. OTHER FINDINGS: None . IMPRESSION: No significant or acute findings to account for/ related to the clinical presentation.
[2017-08-28 10:55] LABS: TROPONIN I < 0.01 ng/mL
[2017-08-28 14:20] VITALS: RESP 18
[2017-08-28 15:08] VITALS: BP 133/67; TEMP 98
[2017-08-28 15:09] VITALS: PULSE 70
--- NOTE | 2017-08-28 19:20 | CP.PCM.DIS ---
<MartinezIrish - Last Filed: 08/28/17 19:15> Provider - Provider Date of Admission: 08/27/17 22:21 Attending physician: Ricardo Gaspar MD Primary care physician: Leyla Sorto MD Time Spent in preparation of Discharge (in minutes): 35 Diagnosis - Discharge Diagnosis (1) GERD (gastroesophageal reflux disease) Status: Acute (2) Chest pain Status: Acute Hospital Course - Lab Results Lab Results: Most Recent Lab Values WBC 3.6 10^3/ul (4.5-11.0) L 08/28/17 06:00 RBC 4.04 10^6/uL (3.5-6.1) 08/28/17 06:00 Hgb 12.0 g/dL (12.0-16.0) 08/28/17 06:00 Hct 35.8 % (36.0-48.0) L 08/28/17 06:00 MCV 88.6 fl (80.0-105.0) 08/28/17 06:00 MCH 29.7 pg (25.0-35.0) 08/28/17 06:00 MCHC 33.5 g/dl (31.0-37.0) 08/28/17 06:00 RDW 12.2 % (11.5-14.5) 08/28/17 06:00 Plt Count 250 10^3/uL (120.0-450.0) 08/28/17 06:00 MPV 10.0 fl (7.0-11.0) 08/28/17 06:00 Gran % 33.6 % (50.0-68.0) L 08/28/17 06:00 Lymph % (Auto) 54.4 % (22.0-35.0) H 08/28/17 06:00 [place] % (Auto) 11.0 % (1.0-6.0) H 08/28/17 06:00 Eos % (Auto) 0.5 % (1.5-5.0) L 08/28/17 06:00 Baso % (Auto) 0.5 % (0.0-3.0) 08/28/17 06:00 Gran # 1.22 (1.4-6.5) L 08/28/17 06:00 Lymph # (Auto) 2.0 (1.2-3.4) 08/28/17 06:00 [place] # (Auto) 0.4 (0.1-0.6) 08/28/17 06:00 Eos # (Auto) 0.0 (0.0-0.7) 08/28/17 06:00 Baso # (Auto) 0.02 K/mm3 (0.0-2.0) 08/28/17 06:00 Sodium 141 mmol/L (132-148) 08/28/17 06:00 Potassium 3.6 mmol/L (3.6-5.0) 08/28/17 06:00 Chloride 107 mmol/L (98-107) 08/28/17 06:00 Carbon Dioxide 26 mmol/L (21-33) 08/28/17 06:00 Anion Gap 12 (10-20) 08/28/17 06:00 BUN 9 mg/dL (7-21) 08/28/17 06:00 Creatinine 0.6 mg/dl (0.7-1.2) L 08/28/17 06:00 Est GFR ( Amer) > 60 08/28/17 06:00 Est GFR (Non-Af Amer) > 60 08/28/17 06:00 Random Glucose 110 mg/dL (70-110) 08/28/17 06:00 Calcium 8.9 mg/dL (8.4-10.5) 08/28/17 06:00 Magnesium 2.4 mg/dL (1.7-2.2) H 08/27/17 20:23 Total Bilirubin 0.3 mg/dL (0.2-1.3) 08/28/17 06:00 AST 33 U/L (14-36) 08/28/17 06:00 ALT 32 U/L (7-56) 08/28/17 06:00 Alkaline Phosphatase 80 U/L (38-126) 08/28/17 06:00 Lactate Dehydrogenase 329 U/L (333-699) L 08/28/17 10:20 Total Creatine Kinase 58 U/L (35-230) 08/28/17 10:20 Troponin I < 0.01 ng/mL 08/28/17 10:20 NT-Pro-B Natriuret Pep 87.1 pg/mL (0-450) 08/27/17 20:23 Total Protein 7.3 g/dL (5.8-8.3) 08/28/17 06:00 Albumin 3.4 g/dL (3.0-4.8) 08/28/17 06:00 Globulin 3.9 gm/dL 08/28/17 06:00 Albumin/Globulin Ratio 0.9 (1.1-1.8) L 08/28/17 06:00 Triglycerides 67 mg/dL (35-160) 08/28/17 06:00 Cholesterol 118 mg/dL (130-200) L 08/28/17 06:00 LDL Cholesterol Direct 70 mg/dL (0-129) 08/28/17 06:00 HDL Cholesterol 28 mg/dL (29-60) L 08/28/17 06:00 Lipase 68 U/L (23-300) 08/27/17 20:23 Urine Color Yellow (YELLOW) 08/27/17 21:18 Urine Appearance Clear (CLEAR) 08/27/17 21:18 Urine pH 6.0 (4.7-8.0) 08/27/17 21:18 Ur Specific [place] 1.010 (1.005-1.035) 08/27/17 21:18 Urine Protein Negative mg/dL (<30 mg/dL) 08/27/17 21:18 Urine Glucose (UA) Negative mg/dL (NEGATIVE) 08/27/17 21:18 Urine Ketones Negative mg/dL (NEGATIVE) 08/27/17 21:18 Urine Blood Negative (NEGATIVE) 08/27/17 21:18 Urine Nitrate Negative (NEGATIVE) 08/27/17 21:18 Urine Bilirubin Negative (NEGATIVE) 08/27/17 21:18 Urine Urobilinogen 0.2 E.U./dL (<1 E.U./dL) 08/27/17 21:18 Ur Leukocyte Esterase Negative Maude/uL (NEGATIVE) 08/27/17 21:18 - Hospital Course Hospital Course: Patient is a 76 year old Mongolian speaking female with past medical history of HTN who initially presented to the emergency department for evaluation and treatment of abdominal pain and nausea which began 2 days ago with no specific provoking events. Pain was burning in nature, originating in epigastrum, exacerbated by meals. ACS workup was negative with negative serial troponins and unremarkable EKG. Pain improved with PPI and antiemetics. Today, patient reports resolution of pain, and denies shortness of breath or palpitations. Daughter was at bedside acting as french instructor. Patient was given prescription for PPI to take at home, and instructed to follow up with her PMD Dr. Lew within one week. All questions were answered to her and her daughter's satisfaction, and she was discharged to home. Discharge Exam - Head Exam Head Exam: ATRAUMATIC, NORMOCEPHALIC - Eye Exam Eye Exam: EOMI, PERRL - ENT Exam ENT Exam: Mucous Membranes Dry, Normal Oropharynx - Respiratory Exam Respiratory Exam: Clear to PA & Lateral, NORMAL BREATHING PATTERN - Cardiovascular Exam Cardiovascular Exam: RRR, +S1, +S2 - GI/Abdominal Exam GI & Abdominal Exam: Normal Bowel Sounds, Soft. absent: Tenderness - Extremities Exam Extremities exam: normal inspection - Neurological Exam Neurological exam: Alert, Oriented x3 - Psychiatric Exam Psychiatric exam: Normal Affect, Normal Mood - Skin Skin Exam: Dry, Intact, Normal Color Discharge Plan - Discharge Medications Prescriptions: RX: Pantoprazole [Protonix EC Tab] 40 mg PO 0600 #30 ect - Follow Up Plan Condition: STABLE Disposition: HOME/ ROUTINE Instructions: Heart Healthy Diet, Shortness of Breath (Dyspnea) (DC), Chest Pain (DC) Additional Instructions: 1. Take protonix in the morning, 30-60 minutes before your first meal of the day 2. Follow up with your primary care doctor within one week 3. For any new or worsening concerns, contact your PCP immediately or return to the ER Referrals: Leyla Sorto MD [Primary Care Provider] - <Ricardo Gaspar - Last Filed: 08/29/17 20:18> Provider - Provider Date of Admission: 08/27/17 22:21 Attending physician: Ricardo Gaspar MD Primary care physician: Leyla Sorto MD Hospital Course - Lab Results Lab Results: Most Recent Lab Values WBC 3.6 10^3/ul (4.5-11.0) L 08/28/17 06:00 RBC 4.04 10^6/uL (3.5-6.1) 08/28/17 06:00 Hgb 12.0 g/dL (12.0-16.0) 08/28/17 06:00 Hct 35.8 % (36.0-48.0) L 08/28/17 06:00 MCV 88.6 fl (80.0-105.0) 08/28/17 06:00 MCH 29.7 pg (25.0-35.0) 08/28/17 06:00 MCHC 33.5 g/dl (31.0-37.0) 08/28/17 06:00 RDW 12.2 % (11.5-14.5) 08/28/17 06:00 Plt Count 250 10^3/uL (120.0-450.0) 08/28/17 06:00 MPV 10.0 fl (7.0-11.0) 08/28/17 06:00 Gran % 33.6 % (50.0-68.0) L 08/28/17 06:00 Lymph % (Auto) 54.4 % (22.0-35.0) H 08/28/17 06:00 [place] % (Auto) 11.0 % (1.0-6.0) H 08/28/17 06:00 Eos % (Auto) 0.5 % (1.5-5.0) L 08/28/17 06:00 Baso % (Auto) 0.5 % (0.0-3.0) 08/28/17 06:00 Gran # 1.22 (1.4-6.5) L 08/28/17 06:00 Lymph # (Auto) 2.0 (1.2-3.4) 08/28/17 06:00 [place] # (Auto) 0.4 (0.1-0.6) 08/28/17 06:00 Eos # (Auto) 0.0 (0.0-0.7) 08/28/17 06:00 Baso # (Auto) 0.02 K/mm3 (0.0-2.0) 08/28/17 06:00 Sodium 141 mmol/L (132-148) 08/28/17 06:00 Potassium 3.6 mmol/L (3.6-5.0) 08/28/17 06:00 Chloride 107 mmol/L (98-107) 08/28/17 06:00 Carbon Dioxide 26 mmol/L (21-33) 08/28/17 06:00 Anion Gap 12 (10-20) 08/28/17 06:00 BUN 9 mg/dL (7-21) 08/28/17 06:00 Creatinine 0.6 mg/dl (0.7-1.2) L 08/28/17 06:00 Est GFR ( Amer) > 60 08/28/17 06:00 Est GFR (Non-Af Amer) > 60 08/28/17 06:00 Random Glucose 110 mg/dL (70-110) 08/28/17 06:00 Hemoglobin A1c 6.2 % (4.2-6.5) 08/28/17 06:00 Calcium 8.9 mg/dL (8.4-10.5) 08/28/17 06:00 Magnesium 2.4 mg/dL (1.7-2.2) H 08/27/17 20:23 Total Bilirubin 0.3 mg/dL (0.2-1.3) 08/28/17 06:00 AST 33 U/L (14-36) 08/28/17 06:00 ALT 32 U/L (7-56) 08/28/17 06:00 Alkaline Phosphatase 80 U/L (38-126) 08/28/17 06:00 Lactate Dehydrogenase 329 U/L (333-699) L 08/28/17 10:20 Total Creatine Kinase 58 U/L (35-230) 08/28/17 10:20 Troponin I < 0.01 ng/mL 08/28/17 10:20 NT-Pro-B Natriuret Pep 87.1 pg/mL (0-450) 08/27/17 20:23 Total Protein 7.3 g/dL (5.8-8.3) 08/28/17 06:00 Albumin 3.4 g/dL (3.0-4.8) 08/28/17 06:00 Globulin 3.9 gm/dL 08/28/17 06:00 Albumin/Globulin Ratio 0.9 (1.1-1.8) L 08/28/17 06:00 Triglycerides 67 mg/dL (35-160) 08/28/17 06:00 Cholesterol 118 mg/dL (130-200) L 08/28/17 06:00 LDL Cholesterol Direct 70 mg/dL (0-129) 08/28/17 06:00 HDL Cholesterol 28 mg/dL (29-60) L 08/28/17 06:00 Lipase 68 U/L (23-300) 08/27/17 20:23 Urine Color Yellow (YELLOW) 08/27/17 21:18 Urine Appearance Clear (CLEAR) 08/27/17 21:18 Urine pH 6.0 (4.7-8.0) 08/27/17 21:18 Ur Specific [place] 1.010 (1.005-1.035) 08/27/17 21:18 Urine Protein Negative mg/dL (<30 mg/dL) 08/27/17 21:18 Urine Glucose (UA) Negative mg/dL (NEGATIVE) 08/27/17 21:18 Urine Ketones Negative mg/dL (NEGATIVE) 08/27/17 21:18 Urine Blood Negative (NEGATIVE) 08/27/17 21:18 Urine Nitrate Negative (NEGATIVE) 08/27/17 21:18 Urine Bilirubin Negative (NEGATIVE) 08/27/17 21:18 Urine Urobilinogen 0.2 E.U./dL (<1 E.U./dL) 08/27/17 21:18 Ur Leukocyte Esterase Negative Maude/uL (NEGATIVE) 08/27/17 21:18 Hepatitis A IgM Ab Negative (NEGATIVE) 08/28/17 06:00 Hep Bs Antigen Negative (NEGATIVE) 08/28/17 06:00 Hep B Core IgM Ab Negative (NEGATIVE) 08/28/17 06:00 Hepatitis C Antibody Reactive (NEGATIVE) 08/28/17 06:00 Attending/Attestation - Attestation I have personally seen and examined this patient.: Yes I have fully participated in the care of the patient.: Yes I have reviewed all pertinent clinical information, including history, physical exam and plan: Yes Notes (Text): 08/28/17 76 year old female with past medical history of hypertension and hepatitis C who presented with complaint of chest pain and abdominal pain. Serial cardiac enzymes were negative and ACS was ruled out. AST was mildly elevated which improved. Her symptoms improved with PPI. She is discharged home to follow up with her pmd. Family was at bedside and questions were answered. Ricardo Gaspar MD Hospitalist.
[2017-08-29 08:46] LABS: HEPATITIS B SURFACE AG Negative (NEGATIVE)
[2017-08-29 08:52] LABS: HEPATITIS A IGM NEGATIVE (NEGATIVE); HEPATITIS B CORE AB NEGATIVE (NEGATIVE)
[2017-08-29 09:15] LABS: HEPATITIS C ANTIBODY REACTIVE (NEGATIVE)
== END 2017-08-28 16:34 | disposition home or self-care (01) ==
LOC: ED 19:37 → ERH 22:21 → 3RSO 08-28 01:04
PROVIDERS: ADMIT Internal Medicine; ATTEND Internal Medicine
DX: K21.9 Gastro-esophageal reflux disease without esophagitis (principal); R07.9 Chest pain, unspecified; R06.02 Shortness of breath; I10 Essential (primary) hypertension; B19.20 Unspecified viral hepatitis C without hepatic coma
CPT/HCPCS: 36415; 71045; 76705; 80053; 80061; 80074; 81003; 82550; 83036; 83615; 83690; 83735; 83880; 84484; 85025; 96374; 96375; 99285; G0378; J2405; J7040

== ENCOUNTER 2018-01-13 09:44 | Emergency (ER) | payer OTHER ==
[2018-01-13 10:00] VITALS: TEMP 98.3; BMI 19.8
--- NOTE | 2018-01-13 10:11 | ED PDOC ---
Arrival/HPI - General Historian: Patient, Family - History of Present Illness Time/Duration: 24 hours Symptom Onset: Gradual Symptom Course: Unchanged, [place] Quality: Burning Activities at Onset: Rest <Maurilio Brown - Last Filed: 01/13/18 12:15> <Rico Hollingsworth - Last Filed: 01/13/18 15:57> - General Chief Complaint: Abdominal Pain Time Seen by Provider: 01/13/18 09:55 - History of Present Illness Narrative History of Present Illness (Text): 01/13/18 10:09 Patient is a 77 year old female with PMH of HTN and GERD who presents to Emergency department with epigastric pain that started about 24 hours ago. She describes the pain as a burning type sensation that radiates to both arms. She also reports feeling nauseated since this morning but has not thrown up. She denies fever, chills, vomiting/diarrhea/constipation, chest pain, SOB, or any other symptoms. (Maurilio Brown) Past Medical History - Provider Review Nursing Documentation Reviewed: Yes - Past History Past History: Non-Contributing - Cardiac Hx Cardiac Disorders: Yes Hx Hypertension: Yes - Pulmonary Hx Respiratory Disorders: No - Neurological Hx Neurological Disorder: No - HEENT Hx HEENT Disorder: No - Renal Hx Renal Disorder: No - Endocrine/Metabolic Hx Endocrine Disorders: No - Hematological/Oncological Hx Blood Disorders: Yes Hx Hepatitis C: Yes - Integumentary Hx Dermatological Disorder: No - Musculoskeletal/Rheumatological Hx Musculoskeletal Disorders: No - Gastrointestinal Hx Gastrointestinal Disorders: No - Genitourinary/Gynecological Hx Genitourinary Disorders: No - Psychiatric Hx Psychophysiologic Disorder: No Hx Substance Use: No <Maurilio Brown - Last Filed: 01/13/18 12:15> Family/Social History - Physician Review Nursing Documentation Reviewed: Yes Family/Social History: No Known Family HX Smoking Status: Never Smoked Hx Alcohol Use: No Hx Substance Use: No <Maurilio Brown - Last Filed: 01/13/18 12:15> Allergies/Home Meds <Maurilio Brown - Last Filed: 01/13/18 12:15> <Rico Hollingsworth - Last Filed: 01/13/18 15:57> Allergies/Adverse Reactions: Allergies No Known Allergies Allergy (Verified 01/13/18 10:06) Home Medications: Home Meds Medication Instructions Recorded Confirmed Metoprolol Succinate XL [Toprol XL] 25 mg PO DAILY 08/28/17 01/13/18 Review of Systems - Review of Systems Constitutional: absent: Fatigue, Fevers Eyes: absent: Vision Changes ENT: absent: Sore Throat, Rhinorrhea Respiratory: absent: SOB, Cough Cardiovascular: absent: Chest Pain, CISSE Gastrointestinal: Abdominal Pain, Nausea. absent: Stool Changes, Constipation, Diarrhea, Vomiting Genitourinary Female: absent: Dysuria Musculoskeletal: absent: Arthralgias, Back Pain Skin: absent: Rash, Pruritis Neurological: absent: Headache Endocrine: absent: Diaphoresis Hemo/Lymphatic: absent: Adenopathy Psychiatric: absent: Anxiety, Depression <Maurilio Brown - Last Filed: 01/13/18 12:15> Physical Exam Vital Signs Reviewed: Yes Temperature: Afebrile Blood Pressure: Normal Pulse: Regular Respiratory Rate: Normal Appearance: Positive for: Non-Toxic Pain Distress: Mild Mental Status: Positive for: Alert and Oriented X 3 - Systems Exam Head: Present: Atraumatic, Normocephalic Pupils: Present: PERRL Extroacular Muscles: Present: EOMI Conjunctiva: Present: Normal Ears: Present: Normal Mouth: Present: Moist Mucous Membranes Pharnyx: Present: Normal. No: ERYTHEMA, EXUDATE Nose (External): Present: Atraumatic Neck: Present: Normal Range of Motion. No: JVD Respiratory/Chest: Present: Clear to Auscultation. No: Wheezes, Rales, Rhonchi Cardiovascular: Present: Regular Rate and Rhythm, Normal S1, S2. No: Murmurs, Rub, Gallop Abdomen: Present: Tenderness (mild tenderness to palpation epigastric). No: Peritoneal Signs, Rebound, Guarding, McBurney's Point Tender Upper Extremity: Present: Normal Inspection. No: Cyanosis, Edema Lower Extremity: Present: Normal Inspection. No: Edema Neurological: Present: Speech Normal Skin: Present: Warm, Dry Psychiatric: Present: Alert, Oriented x 3 <Maurilio Brown - Last Filed: 01/13/18 12:15> Vital Signs Temp Pulse Resp BP Pulse Ox 01/13/18 12:47 98.3 F 70 16 144/74 98 01/13/18 12:06 70 20 144/74 98 01/13/18 09:57 98.3 F 67 18 149/89 97 01/13/18 09:56 98.3 F 67 18 149/89 97 Medical Decision Making - Lab Interpretations I have reviewed the lab results: Yes Interpretation: All labs normal - RAD Interpretation Humanities Coordinator: Radiologist - EKG Interpretation Interpreted by ED Physician: Yes Type: 12 lead EKG Comparison: Com.w/previous EKG <Maurilio Brown - Last Filed: 01/13/18 12:15> <Rico Hollingsworth - Last Filed: 01/13/18 15:57> ED Course and Treatment: 01/13/18 10:14 -Patient was admitted 07/2017 for a similar episode with negative cardiac workup -Patient description more consistent with GERD exacerbation -EKG with normal sinus rhythm without ST and T wave changes -Will get CBC, CMP, Chest X-Ray, cardiac iso -Will give protonix and zofran 01/13/18 11:29 -Patient states she feels better s/p protonix and zofran -All labs, including troponin, WNL -Patient declines additional imaging at this time, states she would rather go home at this time -Will plan on discharge with instruction to return if she worsens, will give protonix prescription (Maurilio Brown) 01/13/18 15:56 pt seen with resdient. epigastric pain. no cp. labs neg. sp meds, abd soft. declines additional imaging. advised outpt fu and strict return precautiosn ( Rico Hollingsworth) - Lab Interpretations Lab Results: 01/13/18 10:22 01/13/18 10:45 Lab Results 01/13/18 11:00: PT 12.4, INR 1.08, APTT 31.1 01/13/18 11:00: Urine Color Yellow, Urine Appearance Clear, Urine pH 6.0, Ur Specific [place] >= 1.030, Urine Protein Trace H, Urine Glucose (UA) Negative, Urine Ketones Negative, Urine Blood Trace-intact H, Urine Nitrate Negative, Urine Bilirubin Negative, Urine Urobilinogen 0.2, Ur Leukocyte Esterase Negative , Urine RBC 2 - 5, Urine WBC 0 - 2, Ur Epithelial Cells 4 - 5, Urine Bacteria Many 01/13/18 10:45: Sodium 143, Potassium 4.4, Chloride 106, Carbon Dioxide 26, Anion Gap 16, BUN 12, Creatinine 0.7, Est GFR ( Amer) > 60, Est GFR (Non- Af Amer) > 60, Random Glucose 120 H, Calcium 9.6, Magnesium 2.1, Total Bilirubin 0.8, AST 30, ALT 29, Alkaline Phosphatase 94, Lactate Dehydrogenase 366, Total Creatine Kinase 44, Troponin I < 0.01, Total Protein 8.4 H, Albumin 4.1, Globulin 4.3, Albumin/Globulin Ratio 1.0 L, Lipase 39 01/13/18 10:22: WBC 4.9 D, RBC 4.54, Hgb 13.7, Hct 40.4, MCV 89.0, MCH 30.2, MCHC 33.9, RDW 12.6, Plt Count 341, MPV 9.8, Gran % 39.9 L, Lymph % (Auto) 46.4 H, Mitchell % (Auto) 10.5 H, Eos % (Auto) 2.6, Baso % (Auto) 0.6, Gran # 1.97, Lymph # (Auto) 2.3, Mitchell # (Auto) 0.5, Eos # (Auto) 0.1, Baso # (Auto) 0.03 - RAD Interpretation Narrative RAD Interpretations (Text): 01/13/18 11:38 Chest X-Ray without acute findings (Maurilio Brown) Radiology Orders: 01/13/18 10:09 CHEST PORTABLE [RAD] Stat - EKG Interpretation EKG Interpretation (Text): 01/13/18 11:[address] or T wave changes (Maurilio Brown) - Medication Orders Current Medication Orders: Discontinued Medications Ondansetron HCl (Zofran Inj) 4 mg IVP STAT STA Stop: 01/13/18 10:10 Last Admin: 01/13/18 10:24 Dose: 4 mg IVP Administration Document 01/13/18 10:24 (Rec: 01/13/18 10:24 [email or web address]) Charges for Administration # of IVP Administrations 1 Pantoprazole Sodium (Protonix Inj) 40 mg IVP STAT STA Stop: 01/13/18 10:10 Last Admin: 01/13/18 10:24 Dose: 40 mg IVP Administration Document 01/13/18 10:24 (Rec: 01/13/18 10:24 [email or web address]) Charges for Administration # of IVP Administrations 1 <BrownMaurilio - Last Filed: 01/13/18 12:15> - Scribe Statement The provider has reviewed the documentation as recorded by the Scribe <Rico Hollingsworth - Last Filed: 01/13/18 15:57> - Scribe Statement Rubén Sheridan Patient Seen With Resident: In agreement with resident note which contains more details about the patient. Patient was seen and evaluated with resident. Came up with plan and treatment together. (Rico Hollingsworth) Disposition/Present on Arrival - Present on Arrival Any Indicators Present on Arrival: No History of DVT/PE: No History of Uncontrolled Diabetes: No Urinary Catheter: No History of Decub. Ulcer: No History Surgical Site Infection Following: None - Disposition Have Diagnosis and Disposition been Completed?: Yes Disposition Time: 11:31 Patient Plan: Discharge <StephanieMaurilio - Last Filed: 01/13/18 12:15> <Rico Hollingsworth - Last Filed: 01/13/18 15:57> - Disposition Diagnosis: Abdominal pain, GERD (gastroesophageal reflux disease) Disposition: HOME/ ROUTINE Condition: GOOD Discharge Instructions (ExitCare): Acid Reflux (Gastroesophageal Reflux Disease ), Adult (DC), Acid Reflux (Gastroesophageal Reflux Disease) in Adults Prescriptions: Pantoprazole Sodium [Protonix] 40 mg PO DAILY 14 Days #14 ect Referrals: Leyla Sorto MD [Primary Care Provider] - Follow up with primary Forms: Revee (Hungarian)
[2018-01-13 10:27] LABS: BASO # 0.03 K/mm3 (0.0-2.0); BASO % 0.6 % (0.0-3.0); EOS # 0.1 (0.0-0.7); EOS % 2.6 % (1.5-5.0); GRAN # 1.97 (1.4-6.5); GRAN % 39.9 % (50.0-68.0); HEMOGLOBIN 13.7 g/dL (12.0-16.0); LYMPH # 2.3 (1.2-3.4); LYMPH % 46.4 % (22.0-35.0); MEAN CORPUSCULAR HEMOGLOBIN 30.2 pg (25.0-35.0); MEAN CORPUSCULAR HGB CONC 33.9 g/dl (31.0-37.0); MEAN PLATELET VOLUME 9.8 fl (7.0-11.0); MONO # 0.5 (0.1-0.6); MONO % 10.5 % (1.0-6.0); RBC 4.54 10^6/uL (3.5-6.1); RED CELL DISTRIBUTION WIDTH 12.6 % (11.5-14.5); WHITE BLOOD COUNT 4.9 10^3/ul (4.5-11.0)
[2018-01-13 11:11] LABS: ALBUMIN 4.1 g/dL (3.0-4.8); ALT/SGPT 29 U/L (7-56); AST/SGOT 30 U/L (14-36); BLOOD UREA NITROGEN 12 mg/dL (7-21); CALCIUM 9.6 mg/dL (8.4-10.5); GFR AFRICAN-AMERICAN > 60; GFR NON-AFRICAN AMERICAN > 60; LIPASE 39 U/L (23-300)
[2018-01-13 11:20] LABS: URINE BILIRUBIN NEGATIVE (NEGATIVE); URINE BLOOD TRACE-INTACT (NEGATIVE); URINE GLUCOSE (UA) NEGATIVE (NEGATIVE); URINE LEUKOCYTE ESTERASE NEGATIVE Leu/uL (NEGATIVE); URINE PROTEIN TRACE mg/dL (<30 mg/dL); URINE UROBILINOGEN 0.2 E.U./dL (<1 E.U./dL)
[2018-01-13 11:21] LABS: URINE APPEARANCE CLEAR (CLEAR); URINE COLOR YELLOW (YELLOW)
[2018-01-13 11:22] LABS: TROPONIN I < 0.01 ng/mL
[2018-01-13 11:24] LABS: URINE WBC 0 - 2 /hpf (0-6)
[2018-01-13 11:25] LABS: URINE BACTERIA MANY (NEG)
--- NOTE | 2018-01-13 11:25 | RAD ---
Date of service: 01/13/2018 HISTORY: abd pain COMPARISON: 08/27/2017 FINDINGS: LUNGS: Chronic interstitial changes are seen in both lower lobes. There are no acute findings PLEURA: No significant pleural effusion identified, no pneumothorax apparent. CARDIOVASCULAR: Aortic tortuosity OSSEOUS STRUCTURES: No significant abnormalities. VISUALIZED UPPER ABDOMEN: Normal. OTHER FINDINGS: None. IMPRESSION: No active disease.
[2018-01-13 11:29] LABS: INR 1.08; PARTIAL THROMBOPLASTIN TIME 31.1 Seconds (25.1-36.5); PROTHROMBIN TIME 12.4 SECONDS (9.4-12.5)
[2018-01-13 12:06] VITALS: BP 144/74; PULSE 70; O2SAT 98
[2018-01-13 12:48] VITALS: RESP 16
--- NOTE | 2018-01-13 17:51 | CARD ---
APPROVED REPORT Date of service: 01/13/2018 EKG Measurement Heart [id number] <Conclusion> Sinus rhythm with short MO Otherwise normal ECG
== END 2018-01-13 12:48 | disposition home or self-care (01) ==
LOC: ED 09:44
DX: K21.9 Gastro-esophageal reflux disease without esophagitis (principal); R10.13 Epigastric pain; I10 Essential (primary) hypertension
CPT/HCPCS: 71045; 80053; 81001; 82550; 83615; 83690; 83735; 84484; 85025; 85610; 85730; 93005; 96374; 96375; 99283; C9113; J2405

== ENCOUNTER 2018-06-12 10:44 | Emergency (ER) | payer OTHER ==
[2018-06-12 11:28] VITALS: BMI 19.2
[2018-06-12] MEDS ORDERED: Atrop/Hyosc/Scopal/PB Elixir (120 ml) PO STA (11:42)
[2018-06-12] MEDS ORDERED: Alum-Mag Hydrox-Simethicone Susp (30 mL) PO STA (11:42)
[2018-06-12 12:07] VITALS: RESP 18
[2018-06-12 12:22] LABS: BASO # 0.01 K/mm3 (0.0-2.0); BASO % 0.3 % (0.0-3.0); GRAN # 1.58 (1.4-6.5); GRAN % 41.2 % (50.0-68.0); LYMPH # 1.7 (1.2-3.4); LYMPH % 43.9 % (22.0-35.0); MEAN CELL VOLUME 91.8 fl (80.0-105.0); MEAN CORPUSCULAR HEMOGLOBIN 29.6 pg (25.0-35.0); MEAN CORPUSCULAR HGB CONC 32.3 g/dl (31.0-37.0); MEAN PLATELET VOLUME 10.1 fl (7.0-11.0); MONO # 0.6 (0.1-0.6); MONO % 14.6 % (1.0-6.0); RBC 4.39 10^6/uL (3.5-6.1); RED CELL DISTRIBUTION WIDTH 12.6 % (11.5-14.5); WHITE BLOOD COUNT 3.8 10^3/uL (4.5-11.0)
[2018-06-12 12:29] LABS: ALBUMIN 4.1 g/dL (3.0-4.8); ALT/SGPT 23 U/L (7-56); AMYLASE 71 U/L (35-125); AST/SGOT 33 U/L (14-36); BLOOD UREA NITROGEN 16 mg/dL (7-21); GFR NON-AFRICAN AMERICAN > 60; LIPASE 50 U/L (23-300)
[2018-06-12 12:32] LABS: INR 1.07; PROTHROMBIN TIME 12.3 SECONDS (9.4-12.5)
[2018-06-12 12:40] LABS: TROPONIN I < 0.01 ng/mL
--- NOTE | 2018-06-12 12:55 | ED PDOC ---
Arrival/HPI - General Chief Complaint: GI Problem Time Seen by Provider: 06/12/18 11:01 Historian: Patient, Family (Family at bedside helped communicate with patient who does not speak [place] ) - History of Present Illness Narrative History of Present Illness (Text): 06/12/18 11:35 77 year old female, whose past medical history includes HTN and GERD, who presents to the ED accompanied by family complaining of burning epigastric pain since yesterday and dry cough for the past 4 days. Family at bedside reports patient feels like vomiting, but has not vomited. Pt notes appetite changes since the past few days. Pt denies any fevers, chills, constipation, diarrhea, or any other complaints. Family at bedside helped translate and communicate with patient. Patient has never smoked. PMD: Leyla Maya Time/Duration: 24 hours (Pt notes epigastric pain since yesterday), > week (Pt notes dry cough since past 4 days ) Symptom Onset: Sudden Symptom Course: Unchanged Quality: Burning (Pt describes epigastric pain as burning) Activities at Onset: Light Past Medical History - Provider Review Nursing Documentation Reviewed: Yes - Past History Past History: Non-Contributing - Infectious Disease Hx of Infectious Diseases: None - Cardiac Hx Cardiac Disorders: Yes Hx Hypertension: Yes - Pulmonary Hx Respiratory Disorders: No - Neurological Hx Neurological Disorder: No - HEENT Hx HEENT Disorder: No - Renal Hx Renal Disorder: No - Endocrine/Metabolic Hx Endocrine Disorders: No - Hematological/Oncological Hx Blood Disorders: Yes Hx Hepatitis C: Yes - Integumentary Hx Dermatological Disorder: No - Musculoskeletal/Rheumatological Hx Musculoskeletal Disorders: No - Gastrointestinal Hx Gastroesophageal Reflux: Yes - Genitourinary/Gynecological Hx Genitourinary Disorders: No - Psychiatric Hx Psychophysiologic Disorder: No Hx Substance Use: No - Anesthesia Hx Anesthesia: No Family/Social History - Physician Review Nursing Documentation Reviewed: Yes Family/Social History: No Known Family HX Smoking Status: Never Smoked Hx Alcohol Use: No Hx Substance Use: No Allergies/Home Meds Allergies/Adverse Reactions: Allergies No Known Allergies Allergy (Verified 01/13/18 10:06) Home Medications: Home Meds Medication Instructions Recorded Confirmed Metoprolol Succinate XL [Toprol XL] 25 mg PO DAILY 08/28/17 06/12/18 Omeprazole 1 cap PO DAILY 01/14/19 01/14/19 Review of Systems - Physician Review All systems were reviewed & negative as marked: Yes - Review of Systems Constitutional: Normal. absent: Fevers, Night Sweats Respiratory: Cough (Pt notes dry cough for the past 4 days ). absent: Normal Gastrointestinal: Abdominal Pain (Pt notes burning abdominal pain since yesterday ), Appetite Changes (Family at bedside notes appetite changes since past few days). absent: Normal, Constipation, Diarrhea Physical Exam Vital Signs Reviewed: Yes Vital Signs Temp Pulse Resp BP Pulse Ox 06/12/18 12:07 97.9 F 73 18 128/73 97 Temperature: Afebrile Blood Pressure: Normal Pulse: Regular Respiratory Rate: Normal Appearance: Positive for: Well-Appearing, Non-Toxic Pain Distress: Mild Mental Status: Positive for: Alert and Oriented X 3 Medical Decision Making ED Course and Treatment: 06/12/18 11:35 Impression: 77 year old female presents to the ED for burning epigastric pain since yesterday and dry cough for the past 4 days. Plan: -- EKG -- Labs -- X-Ray of chest -- Elixir -- Maalox -- Pepcid -- Reglan -- Urinalysis Prior visits: Patient was last seen here in the ED on 01/13/18 for epigastric pain that started about 24 hours ago. Pt was discharged home in good condition, directed to follow up with PMD, and prescribed Protonix 40mg PO for daily, 14 days. Progress notes: 06/12/18 13:12 Labs reviewed with patient feeling much better after medication use. Labs reviewed with no leukocytosis, negative troponin and negative lipase. Daughter informed of labs and requests cough suppressant. She will follow up with her PCP. She is stable for discharge. - Lab Interpretations Lab Results: PT 12.3 SECONDS (9.4-12.5) 06/12/18 12:00 INR 1.07 06/12/18 12:00 APTT 28.0 Seconds (25.1-36.5) 06/12/18 12:00 Troponin I < 0.01 ng/mL 06/12/18 12:00 Total Bilirubin 0.3 mg/dL (0.2-1.3) 06/12/18 12:00 AST 33 U/L (14-36) 06/12/18 12:00 ALT 23 U/L (7-56) 06/12/18 12:00 Alkaline Phosphatase 85 U/L (38-126) 06/12/18 12:00 Total Protein 8.3 g/dL (5.8-8.3) 06/12/18 12:00 Albumin 4.1 g/dL (3.0-4.8) 06/12/18 12:00 Globulin 4.3 gm/dL 06/12/18 12:00 Albumin/Globulin Ratio 1.0 (1.1-1.8) L 06/12/18 12:00 Amylase 71 U/L (35-125) 06/12/18 12:00 Lipase 50 U/L (23-300) 06/12/18 12:00 I have reviewed the lab results: Yes - RAD Interpretation Narrative RAD Interpretations (Text): X-Ray of chest reviewed by radiologists, shows: Dictated by: Fuentes Dotson MD Dictated date/time: 06/12/18 13:13 Impression: No active disease Radiology Orders: 06/12/18 11:41 CHEST PORTABLE [RAD] Stat Therapeutic Case Manager: Radiologist - Medication Orders Current Medication Orders: Discontinued Medications Al Hydrox/Mg Hydrox/Simethicone (Maalox Plus 30 Ml) 30 ml PO STAT STA Stop: 06/12/18 11:43 Last Admin: 06/12/18 12:07 Dose: 30 ml Belladonna/Phenobarbital ( Elixir) 5 ml PO STAT STA Stop: 06/12/18 11:43 Famotidine (Pepcid) 20 mg IVP STAT STA Stop: 06/12/18 11:42 Last Admin: 06/12/18 12:08 Dose: 20 mg IVP Administration Document 06/12/18 12:08 KW (Rec: 06/12/18 12:08 [email or web address]) Charges for Administration # of IVP Administrations 1 Metoclopramide HCl (Reglan) 10 mg IVP STAT STA Stop: 06/12/18 11:42 Last Admin: 06/12/18 12:08 Dose: 10 mg IVP Administration Document 06/12/18 12:08 KW (Rec: 06/12/18 12:08 K[facility] [email or web address]) Charges for Administration # of IVP Administrations 1 - Scribe Statement The provider has reviewed the documentation as recorded by the Scribe Violette Quispe All medical record entries made by the Scribe were at my direction and personally dictated by me. I have reviewed the chart and agree that the record accurately reflects my personal performance of the history, physical exam, medical decision making, and the department course for this patient. I have also personally directed, reviewed, and agree with the discharge instructions and disposition. Disposition/Present on Arrival - Present on Arrival Any Indicators Present on Arrival: No History of DVT/PE: No History of Uncontrolled Diabetes: No Urinary Catheter: No History of Decub. Ulcer: No History Surgical Site Infection Following: None - Disposition Have Diagnosis and Disposition been Completed?: Yes Diagnosis: Gastritis Disposition: HOME/ ROUTINE Disposition Time: 13:15 Patient Plan: Discharge Condition: IMPROVED Discharge Instructions (ExitCare): Gastritis (DC) Print Language: NAMIBIAN Additional Instructions: All medical record entries made by the Scribe were at my direction and personally dictated by me. I have reviewed the chart and agree that the record accurately reflects my personal performance of the history, physical exam, medic al decision making, and the department course for this patient. I have also personally directed, reviewed, and agree with the discharge instructions and disposition. Please monitor for fevers, chills, vomiting or any worsening abdominal pain and if so, return to the Emergency room Please follow up with your PCP in 3-5 days Prescriptions: Acetaminophen/Codeine [Tylenol/Codeine elixir] 12.5 ml PO Q6H #24 udc Aluminum Hydroxide/Magnesium [Maalox Plus 30 ml] 30 ml PO Q6H #4 udc Famotidine [Pepcid] 40 mg PO DAILY #10 tablet Ondansetron ODT [Zofran ODT] 4 mg PO Q6H #6 odt Referrals: Leyla Sorto MD [Family Provider] - Follow up with primary Forms: [employer] ([place])
[2018-06-12] MEDS ORDERED: guaiFENesin 200 mg/10 ml Syrup UD PO ONE (13:11)
--- NOTE | 2018-06-12 13:17 | RAD ---
Date of service: 06/12/2018 HISTORY: epigastric pain COMPARISON: 01/13/2018 FINDINGS: LUNGS: No active pulmonary disease. PLEURA: No significant pleural effusion identified, no pneumothorax apparent. CARDIOVASCULAR: No aortic atherosclerotic calcification present. Normal cardiac size. Mild vascular congestion OSSEOUS STRUCTURES: No significant abnormalities. VISUALIZED UPPER ABDOMEN: Normal. OTHER FINDINGS: None. IMPRESSION: No active disease.
[2018-06-12 13:33] VITALS: BP 136/84; PULSE 86; TEMP 98; O2SAT 98
--- NOTE | 2018-06-13 11:10 | CARD ---
APPROVED REPORT Date of service: 06/12/2018 EKG Measurement Heart [id number] <Conclusion> Poor data quality, interpretation may be adversely affected Normal sinus rhythm Normal ECG
== END 2018-06-12 13:33 | disposition home or self-care (01) ==
LOC: ED 10:44
DX: K29.70 Gastritis, unspecified, without bleeding (principal); I10 Essential (primary) hypertension
CPT/HCPCS: 71045; 80053; 82150; 83690; 84484; 85025; 85610; 85730; 93005; 96374; 96375; 99284; J2765

== ENCOUNTER 2018-06-20 09:31 | Emergency (ER) | payer OTHER ==
[2018-06-20 09:32] VITALS: BMI 19.2
[2018-06-20] MEDS ORDERED: Pantoprazole 40 MG in Sodium Chloride 0.9% 100 ML IV STA (09:53)
[2018-06-20] MEDS ORDERED: Sodium Chloride 0.9% 1,000 ML IV STA (09:53)
[2018-06-20 09:59] VITALS: RESP 18
--- NOTE | 2018-06-20 09:59 | ED PDOC ---
Arrival/HPI - General Chief Complaint: Abdominal Pain Time Seen by Provider: 06/20/18 09:34 Historian: Patient, Family, Sprue Knocker ([id number] translates) - History of Present Illness Time/Duration: Other (approximately 2 weeks) Symptom Onset: Gradual Symptom Course: Unchanged Quality: Aching, Burning Severity Level: Moderate Activities at Onset: Rest Associated Symptoms (Text): 06/20/18 09:56 Patient complains of approximately a two-week history of epigastric burning aching abdominal pain along with nausea and dizziness. No vomiting or diarrhea. The pain radiates through to her back. No chest pain palpitations or dyspnea. No fever or chills. No travel or exposure. Patient was seen in the emergency department last week for similar episode. She reports that this has been happening intermittently since last spring. She had a normal ultrasound in July of last year. No black or bloody bowel movements. Past Medical History - Past History Past History: Non-Contributing - Infectious Disease Hx of Infectious Diseases: None - Cardiac Hx Cardiac Disorders: Yes Hx Hypertension: Yes - Pulmonary Hx Respiratory Disorders: No - Neurological Hx Neurological Disorder: No - HEENT Hx HEENT Disorder: No - Renal Hx Renal Disorder: No - Endocrine/Metabolic Hx Endocrine Disorders: No - Hematological/Oncological Hx Blood Disorders: Yes Hx Hepatitis C: Yes - Integumentary Hx Dermatological Disorder: No - Musculoskeletal/Rheumatological Hx Musculoskeletal Disorders: No - Gastrointestinal Hx Gastroesophageal Reflux: Yes - Genitourinary/Gynecological Hx Genitourinary Disorders: No - Psychiatric Hx Psychophysiologic Disorder: No Hx Substance Use: No - Anesthesia Hx Anesthesia: No Family/Social History - Physician Review Nursing Documentation Reviewed: Yes Family/Social History: Unknown Family HX Smoking Status: Never Smoked Hx Alcohol Use: No Hx Substance Use: No Allergies/Home Meds Allergies/Adverse Reactions: Allergies No Known Allergies Allergy (Verified 01/13/18 10:06) Home Medications: Home Meds Medication Instructions Recorded Confirmed Metoprolol Succinate XL [Toprol XL] 25 mg PO DAILY 08/28/17 06/20/18 Omeprazole 1 cap PO DAILY 06/12/18 06/20/18 Review of Systems - Physician Review All systems were reviewed & negative as marked: Yes - Review of Systems Constitutional: Fatigue. absent: Fevers Respiratory: absent: SOB, Cough, Wheezing Cardiovascular: absent: Chest Pain, Palpitations, Syncope Gastrointestinal: Abdominal Pain, Nausea, Anorexia. absent: Constipation, Diarrhea, Vomiting Genitourinary Female: absent: Dysuria, Frequency, Hematuria Neurological: Dizziness. absent: Headache, Focal Weakness, Gait Changes Physical Exam Temperature: Afebrile Blood Pressure: Normal Pulse: Regular Respiratory Rate: Normal Appearance: Positive for: Well-Appearing, Non-Toxic, Comfortable, Uncomfortable, Cachectic, Other (thin cachectic pale and chronically ill-appearing) Pain Distress: Mild Mental Status: Positive for: other (awake and alert) - Systems Exam Head: Present: Atraumatic, Normocephalic Pupils: Present: PERRL Extroacular Muscles: Present: EOMI Conjunctiva: Present: Normal Mouth: Present: Moist Mucous Membranes Pharnyx: No: ERYTHEMA, EXUDATE, TONSILS ENLARGED Neck: Present: Normal Range of Motion Respiratory/Chest: Present: Clear to Auscultation, Good Air Exchange, Decreased Breath Sounds. No: Respiratory Distress, Accessory Muscle Use Cardiovascular: Present: Regular Rate and Rhythm, Normal S1, S2. No: Murmurs Abdomen: Present: Tenderness (epigastric tenderness), Normal Bowel Sounds. No: Distention, Peritoneal Signs, Rebound, Guarding Back: Present: Normal Inspection. No: CVA Tenderness, Midline Tenderness, Paraspinal Tenderness Upper Extremity: Present: Normal Inspection. No: Cyanosis, Edema Lower Extremity: Present: Normal Inspection. No: Edema Neurological: Present: GCS=15, CN II-XII Intact, Speech Normal, Motor Func Grossly Intact Skin: Present: Warm, Dry, Normal Color. No: Rashes Psychiatric: Present: Alert, Oriented x 3, Normal Insight, Normal Concentration Medical Decision Making ED Course and Treatment: 06/20/18 10:17 EKG shows normal sinus rhythm rate approximately [address] or T-wave changes. 06/20/18 12:11 [id number] reports symptoms have improved. Workup including CT scan is unremarkable. Discharge home with H2 blockers to follow-up with PMD and telephone betting clerk. Follow up in ER as needed. - RAD Interpretation Radiology Orders: 06/20/18 09:53 ABD & PELVIS W/O PO OR IV CONT [CT] Stat 06/20/18 09:54 CHEST PORTABLE [RAD] Stat CT scan of the abdomen and pelvis is read by the radiologist shows no acute findings. Chest one view as read by the radiologist shows no infiltrate effusion or cardiomegaly. Mandarin Tutor: Radiologist - Medication Orders Current Medication Orders: Pantoprazole Sodium 40 mg/ (Sodium Chloride) 100 mls @ 400 mls/hr IV STAT STA Stop: 06/20/18 10:07 Sodium Chloride (Sodium Chloride 0.9%) 1,000 mls @ 100 mls/hr IV .Q10H STA Stop: 06/20/18 19:52 Ondansetron HCl (Zofran Inj) 4 mg IVP STAT STA Stop: 06/20/18 09:54 Disposition/Present on Arrival - Present on Arrival Any Indicators Present on Arrival: No History of DVT/PE: No History of Uncontrolled Diabetes: No Urinary Catheter: No History of Decub. Ulcer: No History Surgical Site Infection Following: None - Disposition Have Diagnosis and Disposition been Completed?: Yes Diagnosis: Acute epigastric pain Disposition: HOME/ ROUTINE Disposition Time: 12:12 Patient Plan: Discharge Condition: IMPROVED Discharge Instructions (ExitCare): Gastritis, Peptic Ulcers, Acid Reflux (Gastroesophageal Reflux Disease), Adult (DC) Prescriptions: Pantoprazole Sodium [Protonix] 40 mg PO DAILY #20 ect Referrals: Leyla Sorto MD [Primary Care Provider] - Follow up with primary Forms: [employer] (Turkmen)
[2018-06-20 10:36] LABS: BASO # 0.01 K/mm3 (0.0-2.0); BASO % 0.2 % (0.0-3.0); GRAN # 2.63 (1.4-6.5); GRAN % 49.8 % (50.0-68.0); HEMOGLOBIN 12.5 g/dL (12.0-16.0); LYMPH # 2.1 (1.2-3.4); LYMPH % 39.2 % (22.0-35.0); MEAN CORPUSCULAR HEMOGLOBIN 29.2 pg (25.0-35.0); MEAN CORPUSCULAR HGB CONC 32.5 g/dl (31.0-37.0); MEAN PLATELET VOLUME 9.6 fl (7.0-11.0); MONO # 0.6 (0.1-0.6); MONO % 10.8 % (1.0-6.0); RBC 4.28 10^6/uL (3.5-6.1); RED CELL DISTRIBUTION WIDTH 12.7 % (11.5-14.5); WHITE BLOOD COUNT 5.3 10^3/uL (4.5-11.0)
[2018-06-20 10:43] LABS: INR 1.05; PARTIAL THROMBOPLASTIN TIME 26.4 Seconds (25.1-36.5); PROTHROMBIN TIME 12.1 SECONDS (9.4-12.5)
[2018-06-20 10:49] LABS: ALB/GLOB RATIO 0.9 (1.1-1.8); ALBUMIN 4.1 g/dL (3.0-4.8); ALT/SGPT 35 U/L (7-56); AMYLASE 87 U/L (35-125); AST/SGOT 36 U/L (14-36); BLOOD UREA NITROGEN 19 mg/dL (7-21); CALCIUM 9.3 mg/dL (8.4-10.5); GFR NON-AFRICAN AMERICAN > 60; LIPASE 71 U/L (23-300)
[2018-06-20 10:53] LABS: TROPONIN I < 0.01 ng/mL
--- NOTE | 2018-06-20 11:16 | CT ---
Date of service: 06/20/2018 PROCEDURE: CT Abdomen and Pelvis without intravenous contrast HISTORY: epigastric pain COMPARISON: Limited abdomen ultrasound 08/27/2017. TECHNIQUE: Helical CT of the abdomen and pelvis was performed without oral or intravenous contrast as per referring physician request. Coronal and sagittal reformats were generated. Contrast dose: None Radiation dose: Total exam DLP = 182.45 mGy-cm. This CT exam was performed using one or more of the following dose reduction techniques: Automated exposure control, adjustment of the mA and/or kV according to patient size, and/or use of iterative reconstruction technique. FINDINGS: LOWER THORAX: Respiratory motion degrades images through the lung bases. Fibrotic changes are identified at the bilateral lung bases with occasional linear atelectasis possible bilaterally underlying fibrotic pattern. No consolidation or pleural effusion. LIVER: Unremarkable. No gross lesion or ductal dilatation. GALLBLADDER AND BILE DUCTS: Unremarkable. PANCREAS: Unremarkable. No gross lesion or ductal dilatation. SPLEEN: Unremarkable. ADRENALS: Unremarkable. No mass. KIDNEYS AND URETERS: Unremarkable. No hydronephrosis. No solid mass. VASCULATURE: Nonaneurysmal abdominal aortic calcific atherosclerotic changes are identified. BOWEL: No bowel obstruction appreciable. Moderate fecal loading is seen scattered throughout various large-bowel segments with the stomach collapsed. Small bowel is unremarkable. Lack of oral contrast limits evaluation of the gastrointestinal tract. No pericolic or perienteric reactive changes appreciated grossly. APPENDIX: Unremarkable. Normal appendix. PERITONEUM: Unremarkable. No free fluid. No free air. LYMPH NODES: Unremarkable. No enlarged lymph nodes. BLADDER: Unremarkable. REPRODUCTIVE: Unremarkable. BONES: No acute fracture. OTHER FINDINGS: None. IMPRESSION: No definitive acute abdominal or pelvic findings as discussed above.
--- NOTE | 2018-06-20 11:17 | RAD ---
Date of service: 06/20/2018 HISTORY: ap COMPARISON: 06/12/2018 FINDINGS: LUNGS: No active pulmonary disease. PLEURA: No significant pleural effusion identified, no pneumothorax apparent. CARDIOVASCULAR: No aortic atherosclerotic calcification present. Normal cardiac size. Mild vascular and interstitial congestion OSSEOUS STRUCTURES: No significant abnormalities. VISUALIZED UPPER ABDOMEN: Normal. OTHER FINDINGS: None. IMPRESSION: No active disease.
[2018-06-20 12:13] VITALS: BP 122/75; PULSE 74; TEMP 98.1; O2SAT 96
--- NOTE | 2018-06-20 23:13 | CARD ---
APPROVED REPORT Date of service: 06/20/2018 EKG Measurement Heart [id number] <Conclusion> Normal sinus rhythm Minor diffuse NDSTT abnormalities. Borderline EKG
== END 2018-06-20 12:51 | disposition home or self-care (01) ==
LOC: ED 09:31
DX: R10.13 Epigastric pain (principal); I10 Essential (primary) hypertension; B19.20 Unspecified viral hepatitis C without hepatic coma; K21.9 Gastro-esophageal reflux disease without esophagitis
CPT/HCPCS: 71045; 74176; 80053; 82150; 82550; 83615; 83690; 84484; 85025; 85610; 85730; 93005; 96374; 96375; 99285; C9113; J2405; J7030